=== PATIENT | male | born 1970 | race Caucasian/White ===

== ENCOUNTER 2020-05-20 06:56 | Emergency (ER) | payer MEDICAID ==
[~2020-05-20] VITALS: Ht 170.2 cm; Wt 122.7 kg
[~2020-05-20 06:56] MED LIST: DULO-31 PO
[2020-05-20 06:58] VITALS: BP 150/85
[2020-05-20] MEDS ORDERED: ketorolac tromethamine 15mg/ml inj. IM ONE (07:00)
[2020-05-20] MEDS ORDERED: acetaminophen 325mg tablet PO ONE (07:00)
[2020-05-20] MEDS ORDERED: HYDR-3965 PO (07:04)
[2020-05-20] MEDS ORDERED: ONDA4TAB6 PO (07:04)
[2020-05-20] MEDS ORDERED: CLIN150C2 PO (07:08)
[2020-05-20] MEDS ORDERED: METH4TAB81 PO (07:08)
== END 2020-05-20 07:34 | disposition home or self-care (01) ==
LOC: ER 06:56
DX: K02.9 Dental caries, unspecified (principal); F32.9 Major depressive disorder, single episode, unspecified; Z88.1 Allergy status to other antibiotic agents; Z79.899 Other long term (current) drug therapy
CPT/HCPCS: 96372; 99283; J1885

== ENCOUNTER 2020-08-05 17:17 | Emergency (ER) | payer MEDICAID ==
[~2020-08-05] VITALS: Ht 170.2 cm; Wt 118.2 kg
[~2020-08-05 17:17] MED LIST changes: +METH4TAB81 PO; +ONDA4TAB6 PO
[2020-08-05 17:40] VITALS: BP 150/92
== END 2020-08-05 19:05 | disposition home or self-care (01) ==
LOC: ER 17:17
DX: M54.41 Lumbago with sciatica, right side (principal); I10 Essential (primary) hypertension; F32.9 Major depressive disorder, single episode, unspecified; Z88.1 Allergy status to other antibiotic agents; Z79.899 Other long term (current) drug therapy
CPT/HCPCS: 99281; 99283

== ENCOUNTER 2020-09-07 09:01 | Emergency (ER) | payer MEDICAID ==
[~2020-09-07] VITALS: Ht 170.2 cm; Wt 113.6 kg
--- NOTE | 2020-09-07 09:57 | NUR ---
AGREE WITH POWDER SHOVELER'S ASSESSMENT ON TRIAGE.
--- NOTE | 2020-09-07 09:57 | NUR ---
COVID SWABBED SEND OUT
== END 2020-09-07 09:59 | disposition home or self-care (01) ==
LOC: ER 09:01
DX: R05 Cough (principal); Z20.828 Contact with and (suspected) exposure to other viral communicable diseases; R42 Dizziness and giddiness; I10 Essential (primary) hypertension; Z88.1 Allergy status to other antibiotic agents; Z79.899 Other long term (current) drug therapy
CPT/HCPCS: 36415; 87635; 99283

== ENCOUNTER 2021-08-19 16:05 | Emergency (ER) | payer MEDICAID ==
[~2021-08-19] VITALS: Ht 170.2 cm; Wt 150.0 kg
[2021-08-19 17:09] LABS: BASOPHILS # (AUTO) 0.1 X10'3 (0-0.2); BASOPHILS % (AUTO) 0.4 % (0-1); EOSINOPHILS # (AUTO) 0.7 X10'3 (0-0.9); EOSINOPHILS % (AUTO) 4.8 % (0-6); HEMATOCRIT 39.3 % (42.0-52.0); HEMOGLOBIN 12.9 g/dl (14.0-17.9); LYMPHOCYTES # (AUTO) 1.8 X10'3 (1.1-4.8); LYMPHOCYTES % (AUTO) 11.8 % (21-51); MEAN CORPUSCULAR HEMOGLOBIN 25.1 PG (27.0-31.0); MEAN CORPUSCULAR HGB CONC 32.9 g/dL (33.0-36.5); MEAN CORPUSCULAR VOLUME 76.3 FL (78-98); MEAN PLATELET VOLUME 7.7 FL (7.4-10.4); MONOCYTES # (AUTO) 1.3 X10'3 (0-0.9); MONOCYTES % (AUTO) 8.2 % (2-12); NEUTROPHILS # (AUTO) 11.6 X10'3 (1.8-7.7); NEUTROPHILS % (AUTO) 74.8 % (42-75); PLATELET COUNT 452 X10'3 (140-440); RED BLOOD COUNT 5.14 X10'6 (4.70-6.10); RED CELL DISTRIBUTION WIDTH 16.3 % (11.5-14.5); WHITE BLOOD COUNT 15.5 X10'3 (4.5-11.0)
[2021-08-19 17:19] LABS: ALANINE AMINOTRANSFERASE 35 U/L (12-78); ALBUMIN 3.7 G/DL (3.4-5.0); ALBUMIN/GLOBULIN RATIO 0.7 (1.1-1.5); ALKALINE PHOSPHATASE 122 IU/L (46-116); ANION GAP 10 (8-16); ASPARTATE AMINO TRANSFERASE 28 U/L (10-37); BILIRUBIN,TOTAL 0.3 MG/DL (0.1-1.0); BLOOD UREA NITROGEN 12 MG/DL (7-18); CALCIUM 8.9 MG/DL (8.5-10.1); CHLORIDE 102 MMOL/L (99-107); GLUCOSE 115 MG/DL (70-104); POTASSIUM 3.8 MMOL/L (3.5-5.1); SODIUM 141 MMOL/L (135-145); TOTAL CARBON DIOXIDE 29.1 MMOL/L (24-32); TOTAL PROTEIN 8.8 G/DL (6.4-8.2); eGFR > 90 ML/MIN
[2021-08-19 21:27] LABS: ETHANOL < 0.010 GM/DL (0.0-0.010)
[2021-08-19 21:47] VITALS: BP 175/103
[2021-08-19] MEDS ORDERED: LISI20TA28 PO (21:48)
--- NOTE | 2021-08-19 21:49 | NUR ---
assumed care of patient [id number]. patient being treated in triage/lobby. patient hypertensive. PA aware. Awaiting orders
[2021-08-19] MEDS ORDERED: cloNIDine 0.1 mg tablet PO ONE (21:50)
== END 2021-08-19 22:00 | disposition home or self-care (01) ==
LOC: ER 16:06
DX: R07.89 Other chest pain (principal); I10 Essential (primary) hypertension; R42 Dizziness and giddiness; R06.02 Shortness of breath; F32.9 Major depressive disorder, single episode, unspecified; Z88.1 Allergy status to other antibiotic agents; Z79.899 Other long term (current) drug therapy
CPT/HCPCS: 36415; 71045; 80053; 80320; 83880; 84484; 85025; 93005; 99285

== ENCOUNTER 2021-09-08 16:24 | Emergency (ER) | payer MEDICAID ==
[~2021-09-08] VITALS: Ht 170.2 cm; Wt 131.8 kg
[~2021-09-08 16:24] MED LIST changes: +LISI20TA28 PO
[2021-09-08 17:46] LABS: BASOPHILS # (AUTO) 0.1 X10'3 (0-0.2); BASOPHILS % (AUTO) 0.8 % (0-1); EOSINOPHILS # (AUTO) 0.1 X10'3 (0-0.9); EOSINOPHILS % (AUTO) 0.7 % (0-6); HEMOGLOBIN 12.8 g/dl (14.0-17.9); LYMPHOCYTES # (AUTO) 1.7 X10'3 (1.1-4.8); LYMPHOCYTES % (AUTO) 14.2 % (21-51); MEAN CORPUSCULAR HEMOGLOBIN 24.7 PG (27.0-31.0); MEAN CORPUSCULAR HGB CONC 32.1 g/dL (33.0-36.5); MEAN PLATELET VOLUME 7.7 FL (7.4-10.4); MONOCYTES # (AUTO) 1.1 X10'3 (0-0.9); MONOCYTES % (AUTO) 8.6 % (2-12); NEUTROPHILS # (AUTO) 9.3 X10'3 (1.8-7.7); NEUTROPHILS % (AUTO) 75.7 % (42-75); PLATELET COUNT 447 X10'3 (140-440); RED BLOOD COUNT 5.19 X10'6 (4.70-6.10); RED CELL DISTRIBUTION WIDTH 16.3 % (11.5-14.5); WHITE BLOOD COUNT 12.2 X10'3 (4.5-11.0)
[2021-09-08 17:49] LABS: ALANINE AMINOTRANSFERASE 31 U/L (12-78); ALBUMIN 3.7 G/DL (3.4-5.0); ALBUMIN/GLOBULIN RATIO 0.9 (1.1-1.5); ALKALINE PHOSPHATASE 101 IU/L (46-116); ANION GAP 9 (8-16); ASPARTATE AMINO TRANSFERASE 22 U/L (10-37); BILIRUBIN,TOTAL 0.3 MG/DL (0.1-1.0); BLOOD UREA NITROGEN 11 MG/DL (7-18); BUN/CREATININE RATIO 16.2 (5.4-32.0); CALCIUM 8.8 MG/DL (8.5-10.1); CHLORIDE 101 MMOL/L (99-107); CREATININE 0.68 MG/DL (0.60-1.10); GLUCOSE 104 MG/DL (70-104); POTASSIUM 3.8 MMOL/L (3.5-5.1); SODIUM 137 MMOL/L (135-145); TOTAL CARBON DIOXIDE 26.9 MMOL/L (24-32); eGFR > 90 ML/MIN
[2021-09-08 17:55] LABS: LIPASE 92 U/L (73-393); MAGNESIUM 2.4 MG/DL (1.5-2.4)
[2021-09-09 00:22] VITALS: BP 170/95
== END 2021-09-09 00:23 | disposition home or self-care (01) ==
LOC: ER 16:25 → EDBEDREQ 23:28 → EDBEDREQTM 23:28 → ER 09-09 00:23
DX: E86.0 Dehydration (principal); R42 Dizziness and giddiness; I10 Essential (primary) hypertension; Z88.1 Allergy status to other antibiotic agents; Z79.899 Other long term (current) drug therapy
CPT/HCPCS: 36415; 71045; 80053; 83690; 83735; 83880; 84484; 85025; 93005; 99285

== ENCOUNTER 2021-10-12 21:14 | Emergency (ER) | payer MEDICAID ==
[~2021-10-12] VITALS: Ht 170.2 cm; Wt 127.3 kg
[~2021-10-12 21:14] MED LIST changes: -LISI20TA28 PO
[2021-10-13 01:07] LABS: BASOPHILS # (AUTO) 0.1 X10'3 (0-0.2); BASOPHILS % (AUTO) 0.5 % (0-1); EOSINOPHILS # (AUTO) 0.1 X10'3 (0-0.9); EOSINOPHILS % (AUTO) 0.8 % (0-6); HEMATOCRIT 36.9 % (42.0-52.0); HEMOGLOBIN 11.6 g/dl (14.0-17.9); LYMPHOCYTES # (AUTO) 2.2 X10'3 (1.1-4.8); LYMPHOCYTES % (AUTO) 16.3 % (21-51); MEAN CORPUSCULAR HEMOGLOBIN 24.5 PG (27.0-31.0); MEAN CORPUSCULAR HGB CONC 31.5 g/dL (33.0-36.5); MEAN CORPUSCULAR VOLUME 77.7 FL (78-98); MEAN PLATELET VOLUME 7.9 FL (7.4-10.4); MONOCYTES # (AUTO) 1.1 X10'3 (0-0.9); NEUTROPHILS # (AUTO) 9.9 X10'3 (1.8-7.7); NEUTROPHILS % (AUTO) 74.4 % (42-75); PLATELET COUNT 381 X10'3 (140-440); RED BLOOD COUNT 4.75 X10'6 (4.70-6.10); RED CELL DISTRIBUTION WIDTH 16.9 % (11.5-14.5); WHITE BLOOD COUNT 13.3 X10'3 (4.5-11.0)
[2021-10-13 01:22] LABS: ALBUMIN 3.4 G/DL (3.4-5.0); ANION GAP 7 (8-16); BLOOD UREA NITROGEN 11 MG/DL (7-18); BUN/CREATININE RATIO 13.6 (5.4-32.0); CALCIUM 8.6 MG/DL (8.5-10.1); CHLORIDE 102 MMOL/L (99-107); CREATININE 0.81 MG/DL (0.60-1.10); GLUCOSE 92 MG/DL (70-104); SODIUM 137 MMOL/L (135-145); TOTAL CARBON DIOXIDE 27.7 MMOL/L (24-32); eGFR > 90 ML/MIN
[2021-10-13 02:00] VITALS: BP 142/75
== END 2021-10-13 04:25 | disposition home or self-care (01) ==
LOC: ER 21:15
DX: R07.89 Other chest pain (principal); E86.0 Dehydration; M79.642 Pain in left hand; R42 Dizziness and giddiness; R06.02 Shortness of breath; I10 Essential (primary) hypertension; F32.9 Major depressive disorder, single episode, unspecified; Z88.1 Allergy status to other antibiotic agents; Z79.899 Other long term (current) drug therapy
CPT/HCPCS: 36415; 71045; 73030; 80048; 84484; 85025; 93005; 99285

== ENCOUNTER 2021-11-11 16:22 | Emergency (ER) | payer MEDICAID ==
[~2021-11-11] VITALS: Ht 167.6 cm; Wt 127.0 kg
[2021-11-11 16:24] VITALS: BP 148/69
[2021-11-11] MEDS ORDERED: CYCL-1 PO (17:08)
[2021-11-11] MEDS ORDERED: ketorolac trometh. 30mg/ml inj. IM ONE (17:10)
[2021-11-11] MEDS ORDERED: cyclobenzaprine 10mg tablet PO ONE (17:10)
== END 2021-11-11 18:12 | disposition home or self-care (01) ==
LOC: ER 16:22
DX: M54.42 Lumbago with sciatica, left side (principal); I10 Essential (primary) hypertension; F32.A Depression, unspecified; Z88.1 Allergy status to other antibiotic agents; Z79.899 Other long term (current) drug therapy
CPT/HCPCS: 99283

== ENCOUNTER 2022-02-01 17:27 | Emergency (ER) | payer MEDICAID ==
[~2022-02-01] VITALS: Ht 188 cm; Wt 127.3 kg
[~2022-02-01 17:27] MED LIST changes: +CYCL-1 PO
[2022-02-01] MEDS ORDERED: CEPH-585 PO (19:41)
[2022-02-01] MEDS ORDERED: IBUP-860 PO (19:41)
[2022-02-01] MEDS ORDERED: CYCL-1 PO (19:41)
[2022-02-01] MEDS ORDERED: cephalexin 500mg capsule PO ONE (19:45)
[2022-02-01] MEDS ORDERED: orphenadrine citrate 60mg/2ml inj. IM ONE (19:45)
[2022-02-01] MEDS ORDERED: ketorolac trometh. 30mg/ml inj. IM ONE (19:45)
[2022-02-01 20:10] VITALS: BP 108/88
== END 2022-02-01 20:13 | disposition home or self-care (01) ==
LOC: ER 17:27
DX: M54.42 Lumbago with sciatica, left side (principal); M79.605 Pain in left leg; G89.29 Other chronic pain; L03.116 Cellulitis of left lower limb; I10 Essential (primary) hypertension; F32.A Depression, unspecified; Z88.1 Allergy status to other antibiotic agents; Z79.2 Long term (current) use of antibiotics; Z79.899 Other long term (current) drug therapy
CPT/HCPCS: 96372; 99284; J1885; J2360